=== PATIENT | male | born 1945 | race Native Hawaiian/Other Pacific Islander ===

== ENCOUNTER 2016-12-10 10:41 | Outpatient (CLI) | payer OTHER ==
[~2016-12-10 10:41] MED LIST: AMIT10TA21 PO; ASA LOW STR81 MG PO; CLARITIN10 M1 PO; CYCL10TA35 PO; DICL1GEL2 TOP; DILT-CD120 MG OR; GLIM4TAB PO; HYDR-2748 PO; HYZAAR1 TA2 PO; LANTUS100 MG/ML SC; METF100038 OR; METFORMIN ER1000 MG PO; NAPROSYN500 MG PO; NEURONTIN800 MG PO; OMEPRAZOLE20 M1 OR; PRAV40TA PO
== END 2016-12-10 21:03 | disposition home or self-care (01) ==
LOC: CT 10:41
DX: R41.0 Disorientation, unspecified (principal)
CPT/HCPCS: 36415; 82565; 84520

== ENCOUNTER 2017-02-09 08:40 | Outpatient (CLI) | payer OTHER | END 2017-02-09 09:40 | disposition home or self-care (01) | LOC: RAD 08:40 | DX: Z01.818 Encounter for other preprocedural examination (principal) ==

== ENCOUNTER 2018-05-02 10:14 | Observation (INO) | payer OTHER ==
[~2018-05-02] VITALS: Ht 180.3 cm; Wt 84.9 kg
[2018-05-02 11:15] LABS: PLATELET COUNT 251 K/uL (142-355)
[2018-05-02 11:40] LABS: POTASSIUM 5.4 mmol/L (3.6-5.2)
[2018-05-02 13:36] VITALS: BP 118/68; TEMP 98.1; Ht 180.3 cm; Wt 84.9 kg
[2018-05-02] MEDS ORDERED: AMIT10TA21 PO ×2 (14:30→14:36)
[2018-05-02] MEDS ORDERED: CYCL10TA35 PO (14:40)
[2018-05-02] MEDS ORDERED: HYZAAR1 TA2 PO (14:45)
[2018-05-02] MEDS ORDERED: ROPINIROLE1 MG PO (14:55)
[2018-05-02] MEDS ORDERED: DONE5TAB PO (14:56)
[2018-05-02] MEDS ORDERED: METF500T PO (14:59)
[2018-05-02 16:11] VITALS: BP 128/61; TEMP 97.4
[2018-05-02 18:58] LABS: POTASSIUM 4.9 mmol/L (3.6-5.2)
[2018-05-02 20:00] VITALS: BP 120/66; TEMP 98.3
[2018-05-03 00:13] VITALS: BP 152/73; TEMP 98.5
--- NOTE | 2018-05-03 00:34 | NUR ---
2015 PT ASSESSMENT COMPLETE. IS AT BEDSIDE. PT DENIES PAIN AT THIS TIME. NS AT 125 HR,INFUSING WITHOUT PROBLEMS NOTED. WILL CONT TO MONITOR PT. SH
--- NOTE | 2018-05-03 00:37 | NUR ---
213 FSBS 207. PT IS ON ORAL MEDS FOR HIS DIABETES. IT IS NEW FOR HIM, NOT COVERED AT THIS TIME WITH INSULIN. SNACK PROVIDED, MILK AND BRYSON CRACKERS. CONCERNED ABOUT HIS BLOOD SUGAR DROPPING THROUGH THE NIGHT. WE WILL CHECK HIM AGAIN IN A FEW HOURS. VERBALIZED UNDERSTANDING. SH
--- NOTE | 2018-05-03 00:44 | NUR ---
8-14-18 0015 FSBS 187. ASLEEP AT BEDSIDE ON THE PULL OUT SOFA. PT HAS NO COMPLAINTS. SH
[2018-05-03 03:50] LABS: PLATELET COUNT 179 K/uL (142-355)
[2018-05-03 04:00] VITALS: BP 123/76; TEMP 97.9
--- NOTE | 2018-05-03 04:46 | NUR ---
CARDIAC LABS AND MORNING LABS DRAWN AT THIS TIME, X 2 ATTEMPTS. PT TOLERATED WELL. PT DENIES PAIN/CHEST PAIN. NO S/S OF DISTRESS NOTED. REMAINS AT BEDSIDE. SH
--- NOTE | 2018-05-03 04:49 | NUR ---
ADDENDUM TO PRIOR NOTE ABOUT LAB DRAW. CARDIAC LABS AND AM LABS WERE DRAWN AT 0315. SH
[2018-05-03 05:30] LABS: POTASSIUM 4.6 mmol/L (3.6-5.2); SODIUM 144 mmol/L (136-145)
[2018-05-03 08:00] VITALS: BP 154/76; TEMP 98
--- NOTE | 2018-05-03 10:28 | NUR ---
DONNA MAYA PIPE BENDER STATES THAT DR. CHAIDEZ IS COMING TO HOSPITAL TODAY TO SEE PT.
[2018-05-03 12:00] VITALS: BP 153/7; TEMP 98.5
--- NOTE | 2018-05-03 13:45 | NUR ---
DR. CHAIDEZ HERE SEEING PT AT THIS TIME. DR. CHAIDEZ WANTS PT TO F/U IN 3-6 WEEKS.
[2018-05-03 16:00] VITALS: BP 173/76; TEMP 98.1
[2018-05-03 19:57] VITALS: BP 162/66; TEMP 98.9
[2018-05-04 00:13] VITALS: BP 150/66; TEMP 98.6
[2018-05-04 04:00] VITALS: BP 150/70; TEMP 98.7
[2018-05-04 05:57] LABS: PLATELET COUNT 202 K/uL (142-355)
[2018-05-04 06:11] LABS: POTASSIUM 4.2 mmol/L (3.6-5.2)
[2018-05-04 08:16] VITALS: BP 133/76; TEMP 98.3
--- NOTE | 2018-05-04 10:56 | NUR ---
0.9% NS X ONE LITER BOLUS OVER ONE HOUR INFUSING AT THIS TIME AT A RATE OF 999ML/HR VIA 20G TO LEFT FOREARM WITHOUT ANY S/S OF INFILTRATION OR REDNESS VISUALIZED AT THIS TIME. PT SITTING UP TO BEDSIDE WITH AT HIS SIDE AND CALL LIGHT WITHIN REACH AND WATCHING TV. NAD, BBS CTA I:E
[2018-05-04 12:00] VITALS: BP 161/80; TEMP 98.3
[2018-05-04 16:00] VITALS: BP 147/67; TEMP 98.1
--- NOTE | 2018-05-04 18:55 | NUR ---
Pt. SITTING WITH FEET HANGING DOWN. 2+ PITTING EDEMA OBSERVED DONNA MAYA NOTIFIED. NEW ORDER RECEIVED. DECREASED FLD TO 50CC HR. GASTON APPLIED. ELEVATED LOWER EXT.
[2018-05-04 20:00] VITALS: BP 178/78; TEMP 98.7
[2018-05-05] VITALS: BP 181/76; TEMP 98.9
[2018-05-05 03:54] VITALS: BP 180/78; TEMP 98.4
[2018-05-05 05:30] LABS: POTASSIUM 3.9 mmol/L (3.6-5.2)
[2018-05-05 05:39] LABS: PLATELET COUNT 227 K/uL (142-355)
[2018-05-05 08:22] VITALS: BP 172/86; TEMP 98.8
== END 2018-05-05 11:22 | disposition home or self-care (01) ==
LOC: MED/SURG 10:14
PROVIDERS: ADMIT Nurse Practitioner
DX: N17.9 Acute kidney failure, unspecified (principal); K52.89 Other specified noninfective gastroenteritis and colitis; R11.2 Nausea with vomiting, unspecified; E86.0 Dehydration; R19.7 Diarrhea, unspecified; R79.89 Other specified abnormal findings of blood chemistry; R53.1 Weakness; E11.9 Type 2 diabetes mellitus without complications; D64.89 Other specified anemias
CPT/HCPCS: 80053; 81000; 82550; 82728; 82747; 82948; 83540; 83880; 84132; 84484; 85027; 85610; 85730; 87040; 93005; 96361; 96365; 96366; 96372; 99220; G0378; G0379; J1650; J1815; J2405

== ENCOUNTER 2018-05-25 07:25 | Outpatient (CLI) | payer OTHER ==
[~2018-05-25 07:25] MED LIST changes: +DONE5TAB PO; +METF500T PO; +ROPINIROLE1 MG PO
== END 2018-05-25 19:23 | disposition home or self-care (01) ==
LOC: RESP 07:25
DX: I49.3 Ventricular premature depolarization (principal); R94.31 Abnormal electrocardiogram [ECG] [EKG]
CPT/HCPCS: 93225

== ENCOUNTER 2018-06-01 07:34 | Outpatient (CLI) | payer OTHER | END 2018-06-01 21:29 | disposition home or self-care (01) | LOC: CT 07:34 | DX: R22.1 Localized swelling, mass and lump, neck (principal); R10.84 Generalized abdominal pain; A08.8 Other specified intestinal infections | CPT/HCPCS: 36415; 82565; 84520 ==

== ENCOUNTER 2018-06-14 10:32 | Outpatient (CLI) | payer OTHER ==
[2018-06-14 10:56] LABS: PLATELET COUNT 188 K/uL (142-355)
[2018-06-14 11:18] LABS: POTASSIUM 4.4 mmol/L (3.6-5.2)
== END 2018-06-14 23:24 | disposition home or self-care (01) ==
LOC: LABW 10:32
PROVIDERS: Internal Medicine
DX: I10 Essential (primary) hypertension (principal); Z79.899 Other long term (current) drug therapy; R53.82 Chronic fatigue, unspecified; N18.3 Chronic kidney disease, stage 3 (moderate)
CPT/HCPCS: 36415; 80053; 80074; 81000; 82043; 82306; 82330; 82550; 82552; 82570; 82607; 82728; 82746; 83036; 83540; 83550; 83735; 83970; 84100; 84155; 84439; 84443; 84550; 85027

== ENCOUNTER 2018-08-02 13:34 | Outpatient (CLI) | payer OTHER | END 2018-08-02 22:09 | disposition home or self-care (01) | LOC: CT 13:34 | DX: R55 Syncope and collapse (principal) ==

== ENCOUNTER 2021-01-20 14:53 | Emergency (ER) | payer OTHER ==
[~2021-01-20] VITALS: Ht 177.8 cm; Wt 79.4 kg
[2021-01-20 15:41] LABS: PLATELET COUNT 168 K/uL (142-355)
[2021-01-20 15:54] LABS: POTASSIUM 4.2 mmol/L (3.6-5.2)
[2021-01-20 16:55] VITALS: BP 164/87; TEMP 97.8
[2021-01-20] MEDS ORDERED: AMITRIPTYLINE H10 MG PO (18:17)
[2021-01-20] MEDS ORDERED: DILTIAZEM HYDR120 M1 PO (18:18)
[2021-01-20] MEDS ORDERED: PANTOPRAZOLE SO40 M1 PO (18:19)
[2021-01-20] MEDS ORDERED: GABA300C2 PO ×2 (18:20→18:21)
[2021-01-20] MEDS ORDERED: DONEPEZIL HCL23 MG PO (18:22)
[2021-01-20] MEDS ORDERED: GLIP10TA55 PO (18:23)
[2021-01-20] MEDS ORDERED: PRAVACHOL20 MG PO (18:24)
[2021-01-20] MEDS ORDERED: QUET25TA2 PO (18:25)
[2021-01-20] MEDS ORDERED: ALLO100T22 PO (18:26)
[2021-01-20] MEDS ORDERED: OLMESARTAN MEDO20 MG PO (18:27)
[2021-01-20] MEDS ORDERED: ROPINIROLE2 M1 PO (18:29)
[2021-01-20] MEDS ORDERED: CILOSTAZOL PO (18:33)
== END 2021-01-20 16:55 | disposition still patient (30) ==
LOC: ED 14:53
PROVIDERS: Emergency Medicine Emergency Medical Services
DX: F03.90 Unspecified dementia, unspecified severity, without behavioral disturbance, psychotic disturbance, mood disturbance, and anxiety (principal); F91.8 Other conduct disorders; Z00.8 Encounter for other general examination
CPT/HCPCS: 80053; 80307; 80329; 81000; 85027; 87635; 93005; 99283; U0003

== ENCOUNTER 2021-02-17 12:21 | Emergency (ER) | payer OTHER ==
[~2021-02-17] VITALS: Ht 176.5 cm; Wt 79.8 kg
[~2021-02-17 12:21] MED LIST changes: +ALLO100T22 PO; +AMITRIPTYLINE H10 MG PO; +CILOSTAZOL PO; +DILTIAZEM HYDR120 M1 PO; +DONEPEZIL HCL23 MG PO; +ESCI10TA PO; +GABA300C2 PO; +GLIP10TA55 PO; +MEMA5TAB PO; +OLMESARTAN MEDO20 MG PO; +PANTOPRAZOLE SO40 M1 PO; +PRAVACHOL20 MG PO; +QUET25TA2 PO; +REMERON 15MG TAB PO; +ROPINIROLE2 M1 PO
[2021-02-17 12:25] VITALS: TEMP 98
[2021-02-17] MEDS ORDERED: AMIT10TA21 PO (13:05)
[2021-02-17] MEDS ORDERED: CILOSTAZOL PO (13:08)
[2021-02-17 13:44] VITALS: BP 127/72
== END 2021-02-17 13:53 ==
LOC: ED 12:21
PROC: 0HQ0XZZ Repair Scalp Skin, External Approach (ICD-10-PCS; principal; 2021-02-17)
DX: S01.01XA Laceration without foreign body of scalp, initial encounter (principal); W01.190A Fall on same level from slipping, tripping and stumbling with subsequent striking against furniture, initial encounter; Y92.143 Cell of prison as the place of occurrence of the external cause
CPT/HCPCS: 99283